=== PATIENT | male | born 2000 | race Caucasian/White ===

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

== ENCOUNTER 2020-11-06 18:12 | Emergency (ER) | payer OTHER ==
--- NOTE | 2020-11-06 20:03 | RAD ---
LEFT ELBOW FOUR VIEWS: 11/06/20 Laceration is seen on the posterior side of the proximal forearm that appears to go down to the ulna. Some tiny soft tissue foreign bodies are seen within the wound. No fracture or joint effusion was pr esent. IMPRESSION: Soft tissue laceration with tiny opaque foreign bodies. POS: HOME
== END 2020-11-06 19:27 | disposition home or self-care (01) ==
LOC: BURERS 18:12
DX: S51.002A Unspecified open wound of left elbow, initial encounter (principal); V86.96XA Unspecified occupant of dirt bike or motor/cross bike injured in nontraffic accident, initial encounter; F17.210 Nicotine dependence, cigarettes, uncomplicated